=== PATIENT | female | born 1980 | race Caucasian/White ===

== ENCOUNTER 2021-04-22 08:11 | Outpatient (CLI) | payer OTHER ==
[~2021-04-22 08:11] MED LIST: IBUP-1222 PO; OXYC1TAB14 PO
== END 2021-04-22 23:59 | disposition home or self-care (01) ==
LOC: CFH 08:11
PROVIDERS: ATTEND Obstetrics & Gynecology
DX: Z12.31 Encounter for screening mammogram for malignant neoplasm of breast (principal)
CPT/HCPCS: 77063; 77067